=== PATIENT | male | born 1970 | race Caucasian/White ===

== ENCOUNTER 2022-04-01 01:26 | Day surgery (SDC) | payer BC, SELFPAY ==
[2022-03-17 13:43] VITALS: BMI 33.9
[2022-04-01 09:21] VITALS: BP 149/89; PULSE 86; RESP 20; TEMP 36; O2SAT 99; BMI 34.3
[2022-04-01] MEDS: LACTATED RINGERS 1,000 ML 150 ML IV CONT (09:28)
--- NOTE | 2022-04-01 09:37 | PM.HPGS ---
History of Present Illness History of Present Illness Consent: Risks, benefits, and alternatives have been discussed and questions answered. Patient agrees to proceed with procedure. Chief complaint: neoplasm screening Narrative: Vitaliy Alegre is a 51 year old male Presents for screening colonoscopy. Patient's current weight appetite and bowel movements are normal. Patient denies abdominal pain. He has had no bleeding. Family history is noncontributory. Review of Systems Review of Systems: Review of systems noncontributory. [facility] Past Medical History Medical History HTN (hypertension) Family History Family History Father Family history of kidney disease Family history of Alzheimer's disease Social History Social History Smoking packs per day: 1.5 Smoking cigarettes per day: 30.0 Years smoked: 30 Smoking pack-years: 45.00 Smoking status: Current every day smoker Tobacco type: cigarettes Alcohol intake: current Drinks per week: 20 Substance use: current Substance use type: marijuana Last use: Weekends Living arrangements: with family Occupation/Education: occupation Gender identity (if verbalized by the patient): Male Sexual Orientation (if Verbalized by the Patient): Straight or Heterosexual Spiritual care concerns: No Meds Home Medications and Allergies Home Medications Medication Instructions Recorded Confirmed Type lisinopril 10 1 tablet PO DAILY #90 tabs 03/25/22 04/01/22 Rx mg-hydrochlorothiazide 12.5 mg tablet Allergies Allergy/AdvReac Type Severity Reaction Status Date / Time No Known Drug Allergies Allergy Unknown none Verified 04/01/22 09:20 Vital Signs Vital Signs - 24 hr 04/01/22 09:21 Temperature 96.8 F L Pulse Rate 86 Respiratory Rate 20 Blood Pressure 149/89 H Pulse Oximetry 99 Oxygen Delivery Room Air Exam Narrative: Physical exam reveals patient to be alert. Vital signs stable. HEENT exam is unremarkable. Patient is anicteric. Lungs are clear to auscultation and percussion. Heart is without murmur or extra sounds. Abdomen bowel sounds present soft nontender with no organomegaly. Digital external rectal exam is normal. Assessment and Plan Assessment and plan (1) Encounter for screening colonoscopy: Code(s): Z12.11 - Encounter for screening for malignant neoplasm of colon Status: Acute Assessment and Plan: Patient presents for screening colonoscopy. He appears to be at average risk for colon polyps. Further recommendations will be given after endoscopy.
--- NOTE | 2022-04-01 09:44 | WPDANESEPPF ---
Anes - Initial Pre Proc Eval Procedure: Operation Date: 04/01/22 10:00 Proposed Procedures p Screening Colonoscopy - Chicho Ugalde MD Date/Time: 04/01/22 09:44 Surgeon: Chicho Ugalde MD Pre Op Diagnosis: neoplasm screening Patient Data Age: 51 Gender: M Height: 1.83 m Weight: 114.9 kg Last Vital Signs Temp 96.8 F L 04/01/22 09:21 Pulse 86 04/01/22 09:21 Resp 20 04/01/22 09:21 BP 149/89 H 04/01/22 09:21 Pulse Ox 99 04/01/22 09:21 O2 Del Method Room Air 04/01/22 09:21 Allergies Allergy/AdvReac Type Severity Reaction Status Date / Time No Known Drug Allergies Allergy Unknown none Verified 04/01/22 09:20 Home Medications Medication Instructions Recorded Confirmed Type lisinopril 10 1 tablet PO DAILY #90 tabs 03/25/22 04/01/22 Rx mg-hydrochlorothiazide 12.5 mg tablet Patient hx anesthesia problems: none Family hx anesthesia problems: none Results Review: All pre-operative results and documents have been reviewed as part of the pre-operative evaluation. [facility] Past Medical History Medical History HTN (hypertension) Family History Family History Father Family history of kidney disease Family history of Alzheimer's disease Social History Social History Smoking packs per day: 1.5 Smoking cigarettes per day: 30.0 Years smoked: 30 Smoking pack-years: 45.00 Smoking status: Current every day smoker Tobacco type: cigarettes Alcohol intake: current Drinks per week: 20 Substance use: current Substance use type: marijuana Last use: Weekends Living arrangements: with family Occupation/Education: occupation Gender identity (if verbalized by the patient): Male Sexual Orientation (if Verbalized by the Patient): Straight or Heterosexual Spiritual care concerns: No Anes - Eval Final PreProcedure Day of Procedure 04/01/22 09:44 Patient weight: obese Heart: regular rate and rhythm Lungs: clear to auscultation Neurological: alert and oriented Last oral intake: >/= 8 hours ASA classification: II Emergent: no Anesthetic plan: proceed Anesthesia type and monitoring: general GIVS and standard monitoring Results Review: All pre-operative results and documents have been reviewed as part of the pre-operative evaluation. Informed Consent: The patient's anesthetic plan and its attendant risks and benefits were discussed with the patient/family/POA. Questions were solicited and answers provided to the satisfaction of the patient/family/POA.
[2022-04-01 10:21] VITALS: BP 106/70; PULSE 84; RESP 20; O2SAT 99
[2022-04-01 10:31] VITALS: BP 105/66; PULSE 88; RESP 17; O2SAT 99
[2022-04-01 10:41] VITALS: BP 110/76; PULSE 86; RESP 17; O2SAT 99
== END 2022-04-01 10:48 | disposition home or self-care (01) ==
PROVIDERS: PCP Family Medicine; Visit Provider Internal Medicine Gastroenterology
PROC: 0DJD8ZZ Inspection of Lower Intestinal Tract, Via Natural or Artificial Opening Endoscopic (ICD-10-PCS; CPT 45378; principal; 2022-04-01 10:00)
DX: Z12.11 Encounter for screening for malignant neoplasm of colon (principal); D12.3 Benign neoplasm of transverse colon; D12.5 Benign neoplasm of sigmoid colon; K57.30 Diverticulosis of large intestine without perforation or abscess without bleeding; K64.8 Other hemorrhoids; I10 Essential (primary) hypertension; E66.9 Obesity, unspecified; Z68.34 Body mass index [BMI] 34.0-34.9, adult; F17.210 Nicotine dependence, cigarettes, uncomplicated; F12.90 Cannabis use, unspecified, uncomplicated
CPT/HCPCS: 45385; 88305; J2704; J7120